=== PATIENT | male | born 1960 | race Caucasian/White ===

== ENCOUNTER → 2024-06-04 | Outpatient (CLI) | payer BC, SELFPAY ==
--- NOTE | 2024-06-04 06:36 | MRI_ITS ---
STUDY: MRI LUMBAR SPINE WITHOUT CONTRAST REASON FOR EXAM: Male, 64 years old. pain TECHNIQUE: Standardized fat and water weighted pulse sequences were obtained in the sagittal and axial planes. COMPARISON: X-ray 05/17/2024 FINDINGS: T12-L1: Normal endplates. Normal disc height, hydration and morphology. Normal bilateral facet joints. Normal central canal and bilateral lateral recesses. Normal bilateral intervertebral neural foramina. Normal lumbar lordosis. There is no substantial scoliosis. Normal conus medullaris that terminates at the L1. L1-2: Normal endplates. Normal disc height, hydration and morphology. Normal bilateral facet joints. Normal central canal and bilateral lateral recesses. Normal bilateral intervertebral neural foramina. L2-3: Moderate broad disc protrusion produces moderate spinal stenosis with moderate bilateral lateral recess stenosis with abutment of the L3 nerve roots bilaterally and moderate bilateral neural foraminal stenosis. L3-4: Moderate broad disc protrusion produces moderate spinal stenosis with moderate bilateral lateral recess stenosis with abutment of the L4 nerve roots bilaterally and moderate bilateral neural foraminal stenosis. L4-5: Mild broad disc protrusion produces mild spinal stenosis and moderate bilateral neural foraminal stenosis. L5-S1: Mild broad disc protrusion produces mild spinal stenosis and moderate bilateral neural foraminal stenosis. Normal visualized sacral ala. Mild friction related edema in the posterior subcutaneous fat. MRI/Spine Lumbar (Routine) IMPRESSION: Multilevel degenerative changes, as described above. Electronically Signed: Gonzalo Stapleton MD at 13:40 EDT ,
== END | disposition home or self-care (01) ==
PROVIDERS: PCP Nurse Practitioner Family; Referring Provider Orthopaedic Surgery Orthopaedic Surgery of the Spine; Visit Provider Orthopaedic Surgery Orthopaedic Surgery of the Spine
DX: M54.16 Radiculopathy, lumbar region (principal)
CPT/HCPCS: 72148

== ENCOUNTER → 2024-11-01 | Outpatient (CLI) | payer BC, SELFPAY ==
--- NOTE | 2024-11-01 06:38 | MRI_ITS ---
HISTORY: cervical myelopathy. TECHNIQUE: Multiplanar and multisequence MR images of the cervical spine were obtained without contrast. 302 images. COMPARISON: XR 09/14/2024. FINDINGS: VERTEBRAE: Vertebral body heights are maintained. Mild degenerative endplate changes at C3-4, C5-6, and C6-7. 8 mm atypical hemangioma in the C7 spinous process incidentally noted. VERTEBRAL ALIGNMENT: Straightening of the cervical lordosis without significant anterior or posterior subluxation. SPINAL CORD: Cervical cord signal and morphology within normal limits. SOFT TISSUES: No prevertebral fluid collection. INTERVERTEBRAL DISCS: C2-3: No significant posterior disc protrusion, central canal stenosis, or foraminal narrowing. C3-4: Very mild disc bulge with uncovertebral and facet arthropathy resulting in minimal narrowing of the thecal sac and mild bilateral foraminal narrowing. C4-5: Mild disc bulge with uncovertebral and facet arthropathy resulting in mild central canal stenosis and bilateral foraminal narrowing. C5-6: Moderate posterior disc bulge osteophyte complex eccentric to left with uncovertebral and facet arthropathy resulting in probable left traversing nerve root impingement, abutment of the ventral cord, moderate central canal stenosis, moderate left, and mild right foraminal narrowing. C6-7: Moderate disc bulge with uncovertebral and facet arthropathy resulting in bilateral traversing nerve root abutment, mild ventral cord abutment, moderate central canal stenosis, and bilateral foraminal narrowing. C7-T1: No significant posterior disc protrusion, central canal stenosis, or foraminal narrowing. Small right perineural cyst. MRI/Spine Cervical (Routine) IMPRESSION: Multilevel degenerative disc disease resulting in moderate spinal canal stenosis, bilateral foraminal narrowing, cord abutment, and nerve root abutment at C5-6 and C6-7. Electronically Signed: Liyah Schmitz MD at 15:17 EST ,
== END | disposition home or self-care (01) ==
PROVIDERS: PCP Nurse Practitioner Family; Referring Provider Orthopaedic Surgery Orthopaedic Surgery of the Spine; Visit Provider Orthopaedic Surgery Orthopaedic Surgery of the Spine
DX: G95.9 Disease of spinal cord, unspecified (principal)
CPT/HCPCS: 72141

== ENCOUNTER 2024-12-19 14:49 | Observation (INO) | payer BC, SELFPAY ==
--- NOTE | 2024-12-07 06:35 | EKG12_ITS ---
Test Reason : PREOP Blood Pressure : */* mmHG Vent. Rate : 99 BPM Atrial Rate : 99 BPM P-R Int : 162 ms QRS Dur : 88 ms QT Int : 324 ms P-R-T Axes : 39 19 -38 degrees QTcB Int : 415 ms Normal sinus rhythm T wave abnormality, consider inferior ischemia Abnormal ECG Confirmed by TONY MOCTEZUMA, DAJUAN ([id number]), digital editor GUSTAVO MCKEON ([id number]) on 12/07/2024 12:51:32 PM Referred By: Slava Bateman Confirmed By: DAJUAN JIMENEZ MD
[2024-12-07 07:10] LABS: Absolute Lymphocyte Count 1.09 X10^3/uL (0.83-4.51); Absolute Neutrophil Count 7.8 X10^3/uL (2.0-7.7); Basophil# 0.08 X10^3/uL; Basophil% 0.8 % (0-1); Eosinophils% 0.9 % (0-5); Hematocrit 45.6 % (40-54); Hemoglobin 15.9 g/dL (13.0-16.5); Lymphocyte # 1.09 X10^3/ul (0.83-4.51); Lymphocyte % 10.3 % (19-41); Mean Corp Hgb Conc 34.9 g/dL (32-36); Mean Corpuscular Hgb 29.2 pg (27.0-32.0); Mean Corpuscular Volume 83.7 fL (80-94); Mean Platelet Vol. 9.2 fl (6.2-12.0); Monocyte% 13.3 % (0-10); NRBC Flagged by Analyzer 0 % (0-5); Neutrophil # 7.81 X10^3/uL (2.7-7.7); Neutrophil % 74.1 % (47-70); Platelet Count 167 K/mm3 (150-450); RBC Distribution Width CV 13.3 % (11.6-14.6); RBC Distribution Width SD 40.6 fl (35.1-43.9); Red Blood Count 5.45 M/mm3 (4.6-6.2); White Blood Count 10.5 K/mm3 (4.4-11.0)
[2024-12-07 07:46] LABS: Anion Gap 9 (5-15); BUN 13 mg/dL (7-18); BUN/Creat Ratio 11.3 RATIO (10-20); Chloride 105 mmol/L (98-107); Creatinine, Serum 1.15 mg/dL (0.70-1.30); EST Glomerular Filtration Rate 68 mL/min (>60); Est Glom Filt Rate - Afr Amer 83 mL/min (>60); Glucose 130 mg/dL (74-106); Potassium 3.6 mmol/L (3.5-5.1); Sodium Level 138 mmol/L (136-145)
[2024-12-08 05:07] LABS: Hepatitis A AB, Total Negative (Negative)
--- NOTE | 2024-12-10 11:18 | PAT.ANESEVAL ---
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 When Was Last Pacemaker Check QUESTION #4 FULL TEXT: You/Your Family Experience fever (hyperthermia) with Anesthesia Last Oral Intake Last Oral intake: Last Oral Intake NPO since Meds taken in AM with sips of water? Meds patient instructed to take am of surgery PONV PONV - complaint operator: PONV - complaint operator Female No 12/05/24 13:11 HX of Motion Sickness No 12/05/24 13:11 HX of N/V After Surgery No 12/05/24 13:11 Non-Smoker Yes 12/05/24 13:11 Duration of Surgery greater Yes 12/05/24 13:11 than 60 minutes Number of Risk Factors 2 12/05/24 13:11 PONV Score Moderate Risk 12/05/24 13:11 Height & Weight Height & Weight: Anesthesia: Height & Weight Height 5 ft 9 in 05/17/24 08:18 Respiratory Assessment Respiratory Assessment - complaint operator: Respiratory Tract Infection Hx - complaint operator Hx Respiratory Tract Infection No 12/05/24 13:11 STOP Sleep Apnea STOP Sleep Apnea - complaint operator: STOP Sleep Apnea - complaint operator Hx Hypertension Yes: CONTROLLED WITH MEDS 12/05/24 13:11 Hx Sleep Apnea Yes 12/05/24 13:11 CPAP No 12/05/24 13:11 BIPAP Yes 12/05/24 13:11 Do you snore loudly (louder than talking or can be heard Do you often feel tired/ fatigued/ sleepy during daytime? Has anyone observed you stop breathing during sleep? STOP Results Positive 12/05/24 13:11 QUESTION #5 FULL TEXT : Do you snore loudly (louder than talking or can be heard through closed doors)? Tobacco Use History Tobacco Use History - complaint operator: Tobacco Use History - complaint operator Tobacco Use Smoking Status Never smoker 12/05/24 13:11 Hx Tobacco Use No 12/05/24 13:11 Years Smoking Packs Smoked per Day Smoking Cessation Date was within the last 15 years Hx Smoking Cessation Date Hx Smoking Cessation Counseling Hematologic Medial History Hematologic Hx - complaint operator: Hematologic Medical Hx - rn clinical documentation Hx of Blood Transfusion No 12/05/24 13:11 Hx of Transfusion in last 3 No 12/05/24 13:11 Months Date of Last Transfusion (if within last 3 months) Ever experience any problems No 12/05/24 13:11 with transfusion(s)? Specify any problems Hx of Preganancy in last 3 N/A 12/05/24 13:11 Months Nurse Filling Out Transfusion DSCHRIBER 12/05/24 13:11 & Questions: Date: 12/05/24 12/05/24 13:11 Time: 13:13 12/05/24 13:11 Patient unable to answer at this time (ie. confused, unrespo /Reproduction History /Reproductive History - complaint operator: /Reproductive Hx- complaint operator Hx Now No 12/05/24 13:11 Gestational Age (in weeks): EDC: Hx Hx Para Hx Section SAB No 12/05/24 13:11 [facility] Medical History (Updated 12/05/24 @ 13:20 by Niru Alba) Wears glasses Depression Anxiety Alcohol use Arthritis Back pain Migraine headache Injury of head and neck History of diverticulitis BiPAP (biphasic positive airway pressure) dependence Shortness of breath on exertion Non-smoker History of pain when walking History of stress test High cholesterol Hypertension Home Medications ?Medication ?Instructions ?Recorded ?Last Taken ?Type cholecalciferol (vitamin D3) 50 50 mcg PO DAILY 05/17/24 Unknown History mcg (2,000 unit) capsule hydrochlorothiazide 12.5 mg tablet 12.5 mg PO QDAY 05/17/24 Unknown History drrnnuaqxaif-fji-bcnjz acid-vit 1 tab PO DAILY 05/17/24 Unknown History K-lycop 400 mcg-20 mcg-370 mcg tablet (Men's 50 Plus Multivitamin) rosuvastatin 10 mg tablet 10 mg PO QHS 05/17/24 Unknown History amlodipine 10 mg tablet 10 mg PO QDAY 09/14/24 Unknown History acetaminophen 325 mg tablet 1,000 mg PO DAILY 12/05/24 Unknown History (Tylenol) Allergy/AdvReac Type Severity Reaction Status Date / Time Penicillins Allergy PT UNSURE Verified 12/05/24 13:06 OF REACTION Sulfa (Sulfonamide Allergy Rash Verified 12/05/24 13:06 Antibiotics) (sulfa drugs) Family History Other Arthritis Hypertension Myocardial infarction Surgical History (Updated 12/05/24 @ 13:20 by Niru Alba) History of cystoscopy Hx of colonoscopy History of colostomy reversal Hx of colectomy Hx of elbow surgery History of Achilles tendon repair History of testicular surgery Hx of inguinal hernia surgery History of cholecystectomy Social History Smoking Status: Never smoker alcohol intake: current alcohol intake frequency: a few times a week what type of physical activity do you participate in: walking and other details: lifts weights frequency: 3-4 times per week Audit: Pertinent Findings Pertinent Findings EKG Perinent findings: 12/07/2024 normal sinus rhythm 99 bpm T wave abnormality, nonspecific ST-T no old EKGs to compare Recommendation Anesthesia Recommendation Anesthesia recommendation: OPTIMIZED for anesthesia
--- NOTE | 2024-12-10 11:20 | PAT.ANESEVAL ---
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 When Was Last Pacemaker Check QUESTION #4 FULL TEXT: You/Your Family Experience fever (hyperthermia) with Anesthesia Last Oral Intake Last Oral intake: Last Oral Intake NPO since Meds taken in AM with sips of water? Meds patient instructed to take am of surgery PONV PONV - commercial real estate agent: PONV - commercial real estate agent Female No 12/05/24 13:11 HX of Motion Sickness No 12/05/24 13:11 HX of N/V After Surgery No 12/05/24 13:11 Non-Smoker Yes 12/05/24 13:11 Duration of Surgery greater Yes 12/05/24 13:11 than 60 minutes Number of Risk Factors 2 12/05/24 13:11 PONV Score Moderate Risk 12/05/24 13:11 Height & Weight Height & Weight: Anesthesia: Height & Weight Height 5 ft 9 in 05/17/24 08:18 Respiratory Assessment Respiratory Assessment - commercial real estate agent: Respiratory Tract Infection Hx - commercial real estate agent Hx Respiratory Tract Infection No 12/05/24 13:11 STOP Sleep Apnea STOP Sleep Apnea - commercial real estate agent: STOP Sleep Apnea - commercial real estate agent Hx Hypertension Yes: CONTROLLED WITH MEDS 12/05/24 13:11 Hx Sleep Apnea Yes 12/05/24 13:11 CPAP No 12/05/24 13:11 BIPAP Yes 12/05/24 13:11 Do you snore loudly (louder than talking or can be heard Do you often feel tired/ fatigued/ sleepy during daytime? Has anyone observed you stop breathing during sleep? STOP Results Positive 12/05/24 13:11 QUESTION #5 FULL TEXT : Do you snore loudly (louder than talking or can be heard through closed doors)? 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 Specify any problems Hx of Preganancy in last 3 N/A 12/05/24 13:11 Months Nurse Filling Out Transfusion DSCHRIBER 12/05/24 13:11 & Questions: Date: 12/05/24 12/05/24 13:11 Time: 13:13 12/05/24 13:11 Patient unable to answer at this time (ie. confused, unrespo /Reproduction History /Reproductive History - commercial real estate agent: /Reproductive Hx- commercial real estate agent Hx Now No 12/05/24 13:11 Gestational Age (in weeks): EDC: Hx Hx Para Hx Section SAB No 12/05/24 13:11 PENDING SALE TO [facility] Medical History (Updated 12/05/24 @ 13:20 by Niru Alba) Wears glasses Depression Anxiety Alcohol use Arthritis Back pain Migraine headache Injury of head and neck History of diverticulitis BiPAP (biphasic positive airway pressure) dependence Shortness of breath on exertion Non-smoker History of pain when walking History of stress test High cholesterol Hypertension Home Medications ?Medication ?Instructions ?Recorded ?Last Taken ?Type cholecalciferol (vitamin D3) 50 50 mcg PO DAILY 05/17/24 Unknown History mcg (2,000 unit) capsule hydrochlorothiazide 12.5 mg tablet 12.5 mg PO QDAY 05/17/24 Unknown History ooyqunuuqnnc-lzs-eqaea acid-vit 1 tab PO DAILY 05/17/24 Unknown History K-lycop 400 mcg-20 mcg-370 mcg tablet (Men's 50 Plus Multivitamin) rosuvastatin 10 mg tablet 10 mg PO QHS 05/17/24 Unknown History amlodipine 10 mg tablet 10 mg PO QDAY 09/14/24 Unknown History acetaminophen 325 mg tablet 1,000 mg PO DAILY 12/05/24 Unknown History (Tylenol) Allergy/AdvReac Type Severity Reaction Status Date / Time Penicillins Allergy PT UNSURE Verified 12/05/24 13:06 OF REACTION Sulfa (Sulfonamide Allergy Rash Verified 12/05/24 13:06 Antibiotics) (sulfa drugs) Family History Other Arthritis Hypertension Myocardial infarction Surgical History (Updated 12/05/24 @ 13:20 by Niru Alba) History of cystoscopy Hx of colonoscopy History of colostomy reversal Hx of colectomy Hx of elbow surgery History of Achilles tendon repair History of testicular surgery Hx of inguinal hernia surgery History of cholecystectomy Social History Smoking Status: Never smoker alcohol intake: current alcohol intake frequency: a few times a week what type of physical activity do you participate in: walking and other details: lifts weights frequency: 3-4 times per week Audit: Pertinent Findings HISTORY of Pertinent Findings History of Pertinent Findings: EKG Pertinent Findings EKG Perinent findings 12/07/2024 normal sinus 12/10/24 11:20 rhythm 99 bpm T wave abnormality, nonspecific ST- T no old EKGs to compare Recommendation Anesthesia Recommendation Anesthesia recommendation: OPTIMIZED for anesthesia
[2024-12-11 14:47] LABS: HIV - WCH Non-Reactive (Nonreactive); Hepatitis B Surface Antibody Non-Reactive; Hepatitis C Antibody Non-Reactive (Nonreactive)
[2024-12-19] VITALS (19 sets, daily range): BP systolic 139–167; BP diastolic 78–103; PULSE 81–105; RESP 14–24; TEMP 36.1–37.4; O2SAT 93–100; BMI 37.8
[2024-12-19] MEDS: Acetaminophen 500 MG Tablet 1000 MG PO ×2 (11:00→20:04)
[2024-12-19] MEDS: 0.9% Normal Saline (1000mL) 1,000 ML 15 ML IV (11:00)
[2024-12-19] MEDS: Magnesium 1 GM over 15 mins IV (11:01)
--- NOTE | 2024-12-19 11:05 | PCM.HP.BLA ---
History and Physical Date of Admission: 12/19/24 MR#: [id number] Acct: [id number] Name: DEVIN LUNDBERG Rep #: [id number] : 1960 Provider: Dr. Slava Bateman MD Age/Sex: 64/M Location: [facility] [place] Status: Signed Intake Vital Signs 05/17/2408:18 Height 5 ft 9 in Intake Visit Reasons: cervical spine Accompanied by: Self Is patient in pain?: Yes Allergies Penicillins Allergy (Verified 12/18/24 10:09) PT UNSURE OF REACTIONSulfa (Sulfonamide Antibiotics) (sulfa drugs) Allergy (Verified 12/18/24 10:09) Rash Medications ?Medication ?Instructions ?Recorded ?Confirmed ?Type cholecalciferol (vitamin D3) 50 50 mcg PO DAILY 05/17/24 12/18/24 History mcg (2,000 unit) capsule hydrochlorothiazide 12.5 mg tablet 12.5 mg PO QDAY 05/17/24 12/18/24 History gdohchmnbdti-yqr-fgoyy acid-vit 1 tab PO DAILY 05/17/24 12/18/24 History K-lycop 400 mcg-20 mcg-370 mcg tablet (Men's 50 Plus Multivitamin) rosuvastatin 10 mg tablet 10 mg PO QHS 05/17/24 12/18/24 History amlodipine 10 mg tablet 10 mg PO QDAY 09/14/24 12/18/24 History acetaminophen 325 mg tablet 1,000 mg PO DAILY 12/05/24 12/18/24 History (Tylenol) PFSH Medical History (Updated 12/05/24 @ 13:20 by Niru Alba) Wears glasses Depression Anxiety Alcohol use Arthritis Back pain Migraine headache Injury of head and neck History of diverticulitis BiPAP (biphasic positive airway pressure) dependence Shortness of breath on exertion Non-smoker History of pain when walking History of stress test High cholesterol Hypertension Surgical History (Updated 12/05/24 @ 13:20 by Niru Alba) History of cystoscopy Hx of colonoscopy History of colostomy reversal Hx of colectomy Hx of elbow surgery History of Achilles tendon repair History of testicular surgery Hx of inguinal hernia surgery History of cholecystectomy Family History Other Arthritis Hypertension Myocardial infarction Social History (Reviewed 11/15/24 @ 15:38 by Maryuri Alvarado Smoking Status: Never smoker alcohol intake: current alcohol intake frequency: a few times a week what type of physical activity do you participate in: walking and other details: lifts weights frequency: 3-4 times per week HPI cervical spine Details: This documentation accurately reflects the service provided and the decisions made by me, Dr. Slava Bateman MD 12/18/24 1005. Part of today?s visit was documented by [ ], acting as scribe. DEVIN LUNDBERG is a 64 year old M here today for his preop appointment for his cervical spine surgery scheduled on 12/19/24. Patient notes that he continues to have cervical spine pain. He denies any radiating pain but has numbness into his hands. He denies any changes since his last visit. Patient notes that he takes tylenol for pain. He is getting over a lingering cold but feels like he is better. 11/16/23: DEVIN LUNDBERG is a 64 year old M here today for MRI review of cervical spine. Patient denies any changes. Patient take 1000mg of Tylenol once a day for pain. Drops stuff a lot with his right hand. Denies any falls or tripping episodes. Complains of balance issues. Non diabetic, no major heart/lung problems, does not take blood thinners. Does have sleep apnea and uses a CPAP machine. 09/14/24: DEVIN LUNDBERG is a 64 year old M here today for neck pain. He states that his arms fall asleep at night and drops things frequently. He has also been having headaches every couple of days. He states that base of his neck always feels tight and sometimes sore. He also feel like he has grinding in the neck as well. He has had neck pain for many years. He does see the chiropractor frequently as well. He occasionally get numbness, tingling in pain bilaterally in the arms. He denies PT and injection for the neck. He had an injection in his lower back with Dr. Ewing which was beneficial. Says that he has noticed his hand writing legibility has decreased. Also mentions that he feels unsteady on his feet. Ortho Exam General General: Yes no acute distress Neurologic: Yes alert and Yes oriented x3 Psychologic: Yes reasonable and appropriate Spine SPINE TESTING CERVICAL THORACIC LUMBAR Musculoskeletal Strength 0=absent - 5=normal Details: Neurological exam of the upper extremities shows 5x5 power. Normal sensations across all dermatomes. Sameer's negative. Right knee reflexes brisk. No midline or paraspinal tenderness. Romberg's positive. Single leg stand shows mild balance issue. Coding Level of Care Code Off vis,est,level 4 Diagnoses Cervical myelopathy G95.9 Time Spent (min) 35 Assessment and Plan Assessment and Plan (1) Cervical myelopathy: Status: Acute Plan reviewed cervical xrays done previously and MRI done recently. Imaging shows straightening of normal cervical lordosis and disc height loss at C5-6 and C6-7. Cervical spine MRI shows C5-6 and C6-7 disc degeneration with cord indentation worse over the left hemicord without cord signal changes. Reviewed imaging in detail with patient. Patient today with cervical myelopathy with progressive dexterity and balance issues from cord compression at C5 and C6-7 levels. Explained to him the natural history of cervical myelopathy which typically that of progression. In order to halt the progression of myelopathy, recommend C5-7 anterior cervical decompression fusion. Went over the risks and benefits of the surgery with the patient. Risks include but are not limited to infection, bleeding, hematoma formation, need for further surgery, dysphagia, dysphonia, recurrent laryngeal nerve injury, DVT, pulm embolism, pneumonia, atelectasis, pseudoarthrosis, adjacent segment degeneration, cardiopulmonary event. Patient understands and agrees to proceed with surgery. Goal of surgery would be to halt progression of myelopathy and hopefully improve his current function. Restrictions after surgery were discussed in detail.
[2024-12-19 11:17] LABS: Bedside Glucose 180 mg/dL (74-106)
--- NOTE | 2024-12-19 11:27 | PCM.PRE.AN2 ---
ASA Classification* ASA Classification ASA Classification: 3 Assessment & Plan Anesthesia* Anesthesia Assessment Anesthesia Assessment: Discussed sedation and/or anesthesia options, risks, benefits, and alternatives with patient/parents/legal guardian/POA. Questions invited. The patient/parents/legal guardian/POA seems to understand and agrees to proceed with anesthesia plan. Reviewed the physical assessment, medical history, allergy history and patient home medications list prior to surgery/procedure/anesthetic and documented any changes. Performed airway and anesthesia risk assessments. Anesthesia Type Anesthesia Type: General (discussed his higher risk for bronchospasm due to lingering cough, nonproductive, patient okay with proceeding with higher risk of bronchospasm) History Source History Obtained from:: Patient and Chart Anesthesia Focused Assessment* Temperature: 97.4 F Pulse Rate: 100 Blood Pressure: 155/88 Respiratory Rate: 20 Pulse Ox: 95 Oxygen Delivery Method: Room Air Airway Assessment Mouth opens: >3 cm Mallampati Score: II Teeth Condition: Intact Neck Range of motion (ROM): Full ROM Focused Labs Anesthesia Preop lab: CBC WBC 10.5 K/mm3 (4.4-11.0) 12/07/24 06:54 12/07/24 RBC 5.45 M/mm3 (4.6-6.2) 12/07/24 06:54 12/07/24 Hgb 15.9 g/dL (13.0-16.5) 12/07/24 06:54 12/07/24 Hct 45.6 % (40-54) 12/07/24 06:54 12/07/24 Plt Count 167 K/mm3 (150-450) 12/07/24 06:54 12/07/24 CHEMISTRY Potassium 3.6 mmol/L (3.5-5.1) 12/07/24 06:54 12/07/24 Sodium 138 mmol/L (136-145) 12/07/24 06:54 12/07/24 Magnesium 2.0 mg/dL (1.6-2.6) 12/07/24 06:54 12/07/24 BUN 13 mg/dL (7-18) 12/07/24 06:54 12/07/24 Creatinine 1.15 mg/dL (0.70-1.30) 12/07/24 06:54 12/07/24 Glucose 130 mg/dL (74-106) H 12/07/24 06:54 12/07/24 POC Glucose 180 mg/dL (74-106) H 12/19/24 10:54 12/19/24 COAG Pre-Assessment Diagnosis/Proposed Procedure Planned Operative Procedure(s): ANTERIOR CERVICAL DISC FUSION C5-6 6-7 Anesthesia History 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 When Was Last Pacemaker Check QUESTION #4 FULL TEXT: You/Your Family Experience fever (hyperthermia) with Anesthesia Last Oral Intake Last Oral intake: Last Oral Intake NPO since 20:00 12/19/24 10:51 Meds taken in AM with sips of Yes 12/19/24 10:51 water? Meds patient instructed to ensure, amlodipine 12/19/24 10:51 take am of surgery PONV PONV - ocean rescue lieutenant: PONV - ocean rescue lieutenant Female No 12/05/24 13:11 HX of Motion Sickness No 12/05/24 13:11 HX of N/V After Surgery No 12/05/24 13:11 Non-Smoker Yes 12/05/24 13:11 Duration of Surgery greater Yes 12/05/24 13:11 than 60 minutes Number of Risk Factors 2 12/05/24 13:11 PONV Score Moderate Risk 12/05/24 13:11 Height & Weight Height & Weight: Anesthesia: Height & Weight Height 5 ft 9 in 12/19/24 10:51 Weight: 116 kg 12/19/24 10:51 Body Mass Index (BMI) 37.8 12/19/24 10:51 Respiratory Assessment Respiratory Assessment - ocean rescue lieutenant: Respiratory Tract Infection Hx - ocean rescue lieutenant Hx Respiratory Tract Infection No 12/05/24 13:11 Any additional information?: Yes Hx Respiratory Tract Infection: Yes (1.5 weeks ago, got z-pack getting better but still has dry lingering cough) STOP Sleep Apnea STOP Sleep Apnea - ocean rescue lieutenant: STOP Sleep Apnea - ocean rescue lieutenant Hx Hypertension Yes: CONTROLLED WITH MEDS 12/05/24 13:11 Hx Sleep Apnea Yes 12/05/24 13:11 CPAP No 12/05/24 13:11 BIPAP Yes 12/05/24 13:11 Do you snore loudly (louder than talking or can be heard Do you often feel tired/ fatigued/ sleepy during daytime? Has anyone observed you stop breathing during sleep? STOP Results Positive 12/05/24 13:11 QUESTION #5 FULL TEXT : Do you snore loudly (louder than talking or can be heard through closed doors)? Tobacco Use History Tobacco Use History - ocean rescue lieutenant: Tobacco Use History - ocean rescue lieutenant Tobacco Use Smoking Status Never smoker 12/05/24 13:11 Hx Tobacco Use No 12/05/24 13:11 Years Smoking Packs Smoked per Day Smoking Cessation Date was within the last 15 years Hx Smoking Cessation Date Hx Smoking Cessation Counseling Hematologic Medial History Hematologic Hx - ocean rescue lieutenant: Hematologic Medical Hx - laser beam cutter Hx of Blood Transfusion No 12/05/24 13:11 Hx of Transfusion in last 3 No 12/05/24 13:11 Months Date of Last Transfusion (if within last 3 months) Ever experience any problems No 12/05/24 13:11 with transfusion(s)? Specify any problems Hx of Preganancy in last 3 N/A 12/05/24 13:11 Months Nurse Filling Out Transfusion DSCHRIBER 12/05/24 13:11 & Questions: Date: 12/05/24 12/05/24 13:11 Time: 13:13 12/05/24 13:11 Patient unable to answer at this time (ie. confused, unrespo /Reproduction History /Reproductive History - ocean rescue lieutenant: /Reproductive Hx- ocean rescue lieutenant Hx Now No 12/05/24 13:11 Gestational Age (in weeks): EDC: Hx Hx Para Hx Section SAB No 12/05/24 13:11 Active Medications Active Medications: Current Medications Generic Name Dose Route Start Last Admin Trade Name Freq PRN Reason Stop Dose Admin Acetaminophen 1,000 mg 12/19/24 13:35 12/19/24 11:00 Acetaminophen 500 Mg Tablet PO 12/19/24 13:36 1,000 mg X1 ONE Administration Dexamethasone Sodium Phosphate 8 mg 12/19/24 13:35 Dexamethasone 10 Mg/Ml Vial IV 12/19/24 13:36 X1 ONE Dexamethasone Sodium Phosphate 4 mg 12/19/24 13:35 Dexamethasone 4 Mg/Ml Vial IV 12/19/24 13:36 X1 ONE Clindamycin Phosphate 900 mg in 50 mls @ 75 mls/hr 12/19/24 13:35 Cleocin IV 12/19/24 14:14 PREOP ONE Tranexamic Acid 1,000 mg/ 110 mls @ 440 mls/hr 12/19/24 13:35 Sodium Chloride IV 12/19/24 13:49 X1 ONE Tranexamic Acid 1,000 mg/ 110 mls @ 440 mls/hr 12/19/24 13:35 Sodium Chloride IV 12/19/24 13:49 X1 ONE Magnesium Sulfate 1 gm/ 102 mls @ 408 mls/hr 12/19/24 13:35 12/19/24 11:01 Dextrose IV 12/19/24 13:49 408 mls/hr X1 ONE Administration Sodium Chloride 1,000 mls @ 15 mls/hr 12/19/24 10:40 12/19/24 11:00 IV 12/24/24 23:59 15 mls/hr .Q48H TERE Administration Protocol Insulin Human Lispro 1 - 6 unit 12/19/24 13:35 Insulin Lispro 100 Unit/Ml Insuln.Pen SC Q4H PRN PRN BG>/= 180, SEE PROTOCOL Protocol PFSH Medical History Wears glasses Depression Anxiety Alcohol use Arthritis Back pain Migraine headache Injury of head and neck History of diverticulitis BiPAP (biphasic positive airway pressure) dependence Shortness of breath on exertion Non-smoker History of pain when walking History of stress test High cholesterol Hypertension Home Medications ?Medication ?Instructions ?Recorded ?Last Taken ?Type cholecalciferol (vitamin D3) 50 50 mcg PO DAILY 05/17/24 12/18/24 History mcg (2,000 unit) capsule hydrochlorothiazide 12.5 mg tablet 12.5 mg PO QDAY 05/17/24 12/18/24 History asgvbwbxysiw-wtx-xnwwx acid-vit 1 tab PO DAILY 05/17/24 12/18/24 History K-lycop 400 mcg-20 mcg-370 mcg tablet (Men's 50 Plus Multivitamin) rosuvastatin 10 mg tablet 10 mg PO QHS 05/17/24 12/18/24 History amlodipine 10 mg tablet 10 mg PO QDAY 09/14/24 12/19/24 09:45 History acetaminophen 325 mg tablet 1,000 mg PO DAILY 12/05/24 12/18/24 History (Tylenol) Allergy/AdvReac Type Severity Reaction Status Date / Time Penicillins Allergy PT UNSURE Verified 12/19/24 10:58 OF REACTION Sulfa (Sulfonamide Allergy Rash Verified 12/19/24 10:58 Antibiotics) (sulfa drugs) Family History Other Arthritis Hypertension Myocardial infarction Surgical History (Updated 12/05/24 @ 13:20 by Niru Alba) History of cystoscopy Hx of colonoscopy History of colostomy reversal Hx of colectomy Hx of elbow surgery History of Achilles tendon repair History of testicular surgery Hx of inguinal hernia surgery History of cholecystectomy Social History Smoking Status: Never smoker alcohol intake: current alcohol intake frequency: a few times a week what type of physical activity do you participate in: walking and other details: lifts weights frequency: 3-4 times per week Review of Systems (Anesthesia) ROS Narrative System reviewed and no additional complaints, except as documented. Physical Exam Const alert and oriented x3 HEENT dentition normal Resp normal respiratory effort, normal air movement and clear to auscultation bilaterally Cardio regular rate Neuro oriented x3 and moves all extremities
[2024-12-19] MEDS: TRANEXAMIC ACID 1,000 MG in 0.9% Normal Saline (100mL Bag) 100 ML 440 MG IV ×2 (11:45→14:02)
[2024-12-19] MEDS: dexAMETHasone 10 MG/ML Vial 8 MG IV (11:50)
[2024-12-19] MEDS: Clindamycin 900 MG/50 ML BAG 75 MG IV ×2 (11:50→20:02)
--- NOTE | 2024-12-19 11:51 | RAD_ITS ---
PROCEDURE: Fluoroscopy use. REASON FOR EXAM: C5-6 and C6-7 fusion. TECHNIQUE: 9 intraoperative fluoroscopic images were obtained during cervical spine fusion. COMPARISON: Cervical spine MRI 11/01/2024 FINDINGS: 9 intraoperative fluoroscopic images were obtained during cervical spine fusion. 18.35 seconds of fluoroscopic time was utilized. On the provided images, a fixation plate and multiple screws project over the anterior margin of the C5-C7 vertebral bodies. RAD/Cerv Spine 2 or 3 Views IMPRESSION: Documentation of fluoroscopy use during cervical spine fusion. Please see the operative note for details. Reading Location: [facility]
--- NOTE | 2024-12-19 14:33 | OP.PCM_ITS ---
Procedures Musculoskeletal 20xxx-29xxx: Other Procedure See Report Operative Report (Standard) Operative Information Date of Procedure: 12/19/24 Pre-Operative Diagnosis: C5-7 disc degeneration with stenosis, myelopathy Post-Operative Diagnosis: Same Surgery/Procedure Performed: C5-7 ACDF router operator radial: Yes Fourdrinier Tender: vishnu Tasks completed by cutting table operator first: Closing, Hemostasis: Electrocautery and Retracting Type of Anesthesia: General RN Documented Start/Stop Times: Operation Date: 12/19/24 13:35 Case Time Into Pre-Op 12/19/24 10:34 Out of Pre-Op 12/19/24 11:40 Anesthesia Start 12/19/24 11:43 Into Room 12/19/24 11:43 Procedure Start 12/19/24 12:19 Procedure End 12/19/24 14:28 Procedure Start Time: 12:19 Procedure Stop Time: 14:28 Select all DRAINS/GRAFTS/IMPLANTS that apply: Graft Graft details: Allograft cortical cancellous strut structural graft and Implanted device Implanted device details: Medtronic [place] Elite plate instrumentation Estimated Blood Loss: 40 cc Specimen collected: No Description of surgery: Preoperative diagnosis: C5-7 disc degeneration with stenosis, myelopathy Postoperative diagnosis: Same Name of procedure: C5-7 anterior cervical discectomy and fusion with plate instrumentation - Anterior cervical fusion C5-6, CPT code 21047 - Anterior plate instrumentation C5-7, CPT code 13021/59 - Anterior cervical fusion C6-7, CPT code 96928/51 -C5-6 structural allograft bone with DBX, CPT code 99547 -C6-7 structural allograft bone with DBX, CPT code 49928 Attending surgeon: Slava Bateman M.D. Anesthesia: Gen. endotracheal Estimated blood loss: 40 mL Complications: None Instrumentation used: Medtronic [place] Elite plate, LASR corticocancellous block Indications: The patient is a pleasant 64-year-old gentleman who presented with neck pain, progressive difficulty with dexterity and balance. MRI showed C5-7 disc degeneration with stenosis and cord compression. In order to halt the progression of myelopathy, the patient requested surgical treatment. All risks and benefits of the procedure were explained to the patient. The risks include but are not limited to infection, bleeding, injury to nerves and vessels, vertebral artery injury, spinal cord injury, paralysis, vocal cord paralysis, injury to esophagus, pseudoarthrosis, need for further procedures, adjacent segment degeneration. Procedure: The patient was identified in the preoperative suite using unique patient identifiers. Skin was marked consent was taken and all questions were answered. The patient was then brought back to the operative room and a timeout was performed. General endotracheal anesthesia was given. Intraoperative neuro monitoring leads were applied. The patient was carefully positioned supine on a regular OR table. A lateral view with a C-arm was done to identify the level and to define the incision. The anterior neck was then prepped and draped in the usual fashion. A final timeout was then performed. A transverse skin incision was taken to the left of midline. Subcutaneous tissue was then divided with Bovie. Platysma was identified and cut along the incision with scissors. The fascial interval between the sternocleidomastoid and the larynx was developed. Omohyoid was identified and retracted and then later divided to obtain adequate retraction of midline structures. The esophagus with the larynx was retracted medially to reach the prevertebral fascia. Marker x-ray was performed with bent spinal needle and disc space and levels were confirmed. Longus coli muscle was elevated on both sides at and above and below C5-7 discs. Self-retaining retractors were then placed. A long handle knife was then used to perform annulotomy at C5-6. Disc fragments were removed with the pituitary. [place] pins were placed in C5 and C6 for disc distraction. Curettes and bur was utilized to remove cartilage from the endplates. Discectomy was performed laterally up to the uncovertebral joints. Posterior osteophytes were thinned down with the bur and adequate decompression in the central and foraminal areas were performed and PLL was thinned out. Once the disc space was prepared, trials of various sizes were utilized. Thorough irrigation was given. 6 mm LASR cortical cancellous allograft bone large footprint was then fashioned in such a way that concavities were burred out inferiorly and superiorly and half cc of DBX (demineralized bone matrix) was squeezed into the cancellous portion. The graft was then inserted into the C5-6 disc space. The retractors were then repositioned and the procedure was repeated for C6-7 disc with complete discectomy. Graft size was 6 mm at with large footprint at C6-7. The grafts were found to be in good apposition with good pullout strength. A 42 mm Medtronic [place] Elite plate was then fixed to C5-7 with 17 mm screws. A lateral x-ray was then taken to check the length of the screws. Both AP and lateral x-rays showed good positioning of plate and screws. The locking mechanism over the screw heads was then turned. Thorough irrigation was again given. Hemostasis was achieved. A [place] drain was then inserted. Closure was done with 3-0 Vicryl for the platysma and subcutaneous tissue layers and 4-0 Monocryl for the skin. Closure was done around the drain. Steri-Strips were applied and dressing was done with 4 x 4 gauze and Tegaderm. A cervical collar was then applied. The patient was then woken up from anesthesia extubated and taken to PACU in stable condition. From here, the patient will be transitioned to the floor. Intraoperative neuro monitoring was performed throughout this procedure. Motor evoked potentials were run periodically. All potentials remained at baseline throughout the procedure. I was present for the entire surgery and performed the surgery myself. Surgical Findings: See operative note Complications Complications: No
--- NOTE | 2024-12-19 14:53 | PCM.POST.ANE ---
Anesthesia: Postop Eval I Current Vital Signs Temperature: 99.4 F Pulse Rate: 92 Blood Pressure: 159/103 Respiratory Rate: 24 Pulse Ox: 100 Oxygen Delivery Method: Simple Mask Oxygen Flow Rate (L/min): 6 Assessment Airway patent: Yes Spontaneous unlabored respirations: Yes Mental status: Awake and Calm nausea: No Vomiting: No Anesthesia Complication: No Fluid Hydration Crystalloid volume administer (ml): 1,700 Total IV fluid infused: 1,700 Progress Note Anesthesia document: Postop Eval 1 completed: Yes
--- NOTE | 2024-12-19 15:51 | POSTOPAN2_ITS ---
Anesthesia Postop Eval I Sum Postop Eval Completion status Anesthesia document: Postop Eval 1 completed: Yes Anesthesia Postop Eval I Summary Anesthesia Postop Eval I Summary: Anesthesia Postop Eval I: Assessment Summary Airway patent Yes 12/19/24 14:54 FILE [email or web address] Spontaneous unlabored Yes 12/19/24 14:54 FILE [email or web address] respirations Mental status Awake,Calm 12/19/24 14:54 FILE [email or web address] nausea No 12/19/24 14:54 FILE [email or web address] Vomiting No 12/19/24 14:54 FILE [email or web address] Anesthesia Postop Eval I: Fluid Summary Crystalloid volume administer 1,700 12/19/24 14:54 FILE [email or web address] (ml) Colloids volume administered ( ml) Blood Product volume administered (ml) Total IV fluid infused 1,700 12/19/24 14:54 FILE [email or web address] Anesthesia Postop Eval I: Summary Notes Anesthesia Complication No 12/19/24 14:54 FILE [email or web address] Anesthesia Complication Comment: Post-operative progress note Anesthesia: Postop Eval II Evaluation Mental status: Awake and Calm Pain Level: 0 nausea: No Vomiting: No Complications Anesthesia Complication: No
--- NOTE | 2024-12-19 15:51 | PCM.POSTANE2 ---
Anesthesia Postop Eval I Sum Postop Eval Completion status Anesthesia document: Postop Eval 1 completed: Yes Anesthesia Postop Eval I Summary Anesthesia Postop Eval I Summary: Anesthesia Postop Eval I: Assessment Summary Airway patent Yes 12/19/24 14:54 INTERACTIVE MEDIA SPECIALIST.[email or web address] Spontaneous unlabored Yes 12/19/24 14:54 INTERACTIVE MEDIA SPECIALIST.LEOPOLDO respirations Mental status Awake,Calm 12/19/24 14:54 INTERACTIVE MEDIA SPECIALIST.[email or web address] nausea No 12/19/24 14:54 INTERACTIVE MEDIA SPECIALIST.SKOBY Vomiting No 12/19/24 14:54 INTERACTIVE MEDIA SPECIALIST.[email or web address] Anesthesia Postop Eval I: Fluid Summary Crystalloid volume administer 1,700 12/19/24 14:54 INTERACTIVE MEDIA SPECIALIST.[email or web address] (ml) Colloids volume administered ( ml) Blood Product volume administered (ml) Total IV fluid infused 1,700 12/19/24 14:54 INTERACTIVE MEDIA SPECIALIST.[email or web address] Anesthesia Postop Eval I: Summary Notes Anesthesia Complication No 12/19/24 14:54 INTERACTIVE MEDIA SPECIALIST.LEOPOLDO Anesthesia Complication Comment: Post-operative progress note Anesthesia: Postop Eval II Evaluation Mental status: Awake and Calm Pain Level: 0 nausea: No Vomiting: No Complications Anesthesia Complication: No
[2024-12-19] MEDS: oxyCODONE 5 MG Tablet PO (18:45)
--- NOTE | 2024-12-19 18:46 | PCM.PN.HOSP ---
Reason for Visit Reason for Visit: Diagnoses Encounter for other preprocedural examination (12/19/24) Subjective Subjective Consult requested to Dr. Bateman for postoperative medical management. Patient feels that he is doing fairly well after surgery today. Has eaten and is doing well thus far. Pain is very tolerable at the moment. Objective Data Objective Data Vital Signs: Vital Signs Temp Pulse Resp BP Pulse Ox O2 Del Method O2 Flow Rate 36.7 C 101 H 16 167/94 H 95 Room Air 4 12/19/24 18:18 12/19/24 18:18 12/19/24 18:18 12/19/24 18:18 12/19/24 18:18 12/19/24 18:18 12/19/24 16:30 FiO2 40 12/19/24 15:15 Oxygen Flow Rate (L/min) 4 Oxygen Delivery Method Room Air Weight: 116 kg Body Mass Index (BMI) 37.8 Intake & Output: Intake and Output for Last 24 Hours 12/17/24 12/18/24 12/19/24 23:59 23:59 23:59 Intake Total 2172 / 2172 Output Total 300 / 300 Balance 1872 / 1872 Lab / Micro Data 12/07/24 06:54 12/07/24 06:54 Labs: Laboratory Results - last 24 hr 12/19/24 10:54: POC Glucose 180 H Micro: Microbiology 12/07/24 06:54 Swab (Method) Nasal Screen MRSA/MSSA - Final Physical Exam Const Constitutional Narrative: Up in bed. Nontoxic afebrile. Neck collar in place. Resp normal respiratory effort, no retractions, no use of accessory muscles and clear to auscultation bilaterally Cardio regular rate, regular rhythm, S1 normal heart sound and S2 normal heart sound GI normal to inspection, nondistended, normoactive bowel sounds, soft to palpation, non-tender and non-distended Extremity normal to inspection and full ROM Neuro moves all extremities Sensorium / Orientation: awake and alert Assessment & Plan Assessment/Plan (1) Spinal stenosis in cervical region: PLAN: Plan Hypertension: Patient did require labetalol in the operating room. Continue with amlodipine, hydrochlorothiazide. Status post C5-7 ACDF: Management per primary service. VTE prophylaxis: Per the primary service. Patient very medically stable and do not dissipate any active acute medical issues but the hospital service can be available in case anything were to come out. Please reach out if acute medical issues do arise. Charges/Coding Visit Charges Office Visits / Consults: [id number] OV L2 New 15min
[2024-12-19] MEDS: Ensure Surgery 237 ML LIQUID PO (18:47)
[2024-12-19] MEDS: Methocarbamol 500 MG Tablet 1000 MG PO ×2 (20:02→22:22)
[2024-12-19] MEDS: Senna/Docusate Sodium 1 Tablet 2 TABLET PO (20:04)
[2024-12-19] MEDS: Atorvastatin Calcium 20 MG Tablet PO (20:04)
--- NOTE | 2024-12-19 21:53 | CPS ---
Patient has home pap but refused to have PREMIX OPERATOR CONCENTRATE set it up, he stated he felt stuffy and would rather not wear it tonight.
[2024-12-20] VITALS (9 sets, daily range): BP systolic 142–167; BP diastolic 73–98; PULSE 85–95; RESP 16–18; TEMP 36.2–36.5; O2SAT 94–95; BMI 37.8
[2024-12-20] MEDS: oxyCODONE 5 MG Tablet PO ×3 (00:37→14:34)
[2024-12-20] MEDS: Clindamycin 900 MG/50 ML BAG 75 MG IV (03:27)
[2024-12-20] MEDS: amLODIPine 10 MG Tablet PO (05:19)
[2024-12-20] MEDS: hydroCHLOROthiazide 12.5mg 12.5 MG PO (05:19)
[2024-12-20] MEDS: Acetaminophen 500 MG Tablet 1000 MG PO ×2 (05:20→13:31)
--- NOTE | 2024-12-20 05:23 | NURSING ---
bp medication given at this time d/t increased bp. rn aware
--- NOTE | 2024-12-20 05:55 | RAD_ITS ---
PROCEDURE: CERV SPINE 2 OR 3 VIEWS REASON FOR EXAM: Status post anterior cervical disc fusion. TECHNIQUE: 2 views of the cervical spine. COMPARISON: Cervical spine x-ray dated 09/14/2024. FINDINGS: There is mild reversal of normal cervical lordosis. Since prior examination, patient has undergone C5-C7 anterior cervical disc fusion. Intervertebral disc spacers are present at C5-6 and C6-7. Stable degenerative changes within cervical spine. C-spine braces there appears to be in place. RAD/Cerv Spine 2 or 3 Views IMPRESSION: Serous post C5-C7 ACDF. Reading Location: [id number]
--- NOTE | 2024-12-20 06:53 | NURSING ---
recheck of pt bp completed at this time and remains high, rn made aware, will pass along information in report for dayshift
[2024-12-20 07:53] LABS: Hematocrit 42.9 % (40-54); Hemoglobin 14.8 g/dL (13.0-16.5); Mean Corp Hgb Conc 34.5 g/dL (32-36); Mean Corpuscular Hgb 29.1 pg (27.0-32.0); Mean Corpuscular Volume 84.3 fL (80-94); Mean Platelet Vol. 8.7 fl (6.2-12.0); Platelet Count 285 K/mm3 (150-450); RBC Distribution Width CV 13.3 % (11.6-14.6); RBC Distribution Width SD 41.1 fl (35.1-43.9); Red Blood Count 5.09 M/mm3 (4.6-6.2); White Blood Count 19.1 K/mm3 (4.4-11.0)
[2024-12-20] MEDS: Ensure Surgery 237 ML LIQUID PO ×2 (08:15→11:36)
[2024-12-20 08:34] LABS: Anion Gap 16 (5-15); BUN 13 mg/dL (4-19); BUN/Creat Ratio 14.8 RATIO (10-20); Calcium 9.3 mg/dL (7.6-11.0); Carbon Dioxide 19.4 mmol/L (22.0-29.0); Chloride 102 mmol/L (96-108); Creatinine, Serum 0.9 mg/dL (0.8-1.3); EST Glomerular Filtration Rate 96 (>60); Estimated Creatinine Clearance 106.91 ml/min; Glucose 158 mg/dL (70-99); Potassium 3.8 mmol/L (3.3-5.1); Sodium Level 137 mmol/L (133-145)
--- NOTE | 2024-12-20 09:25 | CASEMGMT ---
SHANE HARRY Assessment: Face to Face with pt for initial transition planning/care coordination assessment. SHANE HARRY introduced self and role at [facility], pt voices understanding and consents to assessment. Pt is A&O x4 and answers all questions appropriately at this time. Pt sitting up in chair in no distress and just finished working with PT. Care providers, pharmacy, and demographics verified/updated. Admitting Dx: anterior cervical fusion Strata Score: 1 PCP:Cecilia Specialists:gideon Bateman [facility]acy: [facility] [place] Insurance: [place] Prescription Benefit: yes LNOK: Linette King, dtr; Jasvir Burks, brother Living Arrangements: Pt lives alone in a two story home with 3 steps to enter. Pt reports he was I in ADL/IADLs and denies concerns at home. Transportation: Pt drives self and denies concerns with transportation. Pt dtr will transport him until he can drive again. DME:Denies HHC/SNF: Denies hx of Pt states no concerns with going home at time of dc. Pt ambulated halls without device, felt safe. Pt states no further concerns/needs. CM to follow. Advised pt to ask CM if any further questions/concerns/needs arise, voices understanding. Pt Goal: Home Plan: Home Audrey LYNN CM
[2024-12-20] MEDS: Senna/Docusate Sodium 1 Tablet 2 TABLET PO (10:20)
[2024-12-20] MEDS: Methocarbamol 500 MG Tablet 1000 MG PO ×2 (10:20→13:32)
[2024-12-20] MEDS: Meloxicam 15 MG Tablet PO (10:20)
--- NOTE | 2024-12-20 13:00 | PCM.PN.ORT ---
Subjective Subjective Postop day 1 status post C5-7 ACDF. Pain well-controlled. Walked with PT OT. Preoperative symptoms resolved. Objective Data Objective Data Vital Signs: Vital Signs Temp Pulse Resp BP Pulse Ox O2 Del Method O2 Flow Rate 97.5 F L 88 18 145/73 H 94 Room Air 2 12/20/24 10:00 12/20/24 11:55 12/20/24 11:55 12/20/24 10:00 12/20/24 11:55 12/20/24 11:55 12/20/24 07:00 FiO2 40 12/19/24 15:15 Oxygen Flow Rate (L/min) 2 Oxygen Delivery Method Room Air Weight: 255 lb 11.779 oz Body Mass Index (BMI) 37.8 Intake & Output: Intake and Output for Last 24 Hours 12/18/24 12/19/24 12/20/24 23:59 23:59 23:59 Intake Total 2582 / 2582 1257.75 / 1257.75 Output Total 300 / 300 725 / 725 Balance 2282 / 2282 532.75 / 532.75 Lab / Micro Data 12/20/24 07:47 12/20/24 07:42 Labs: Laboratory Results - last 24 hr 12/20/24 07:42: Sodium 137, Potassium 3.8, Chloride Direct 102, Carbon Dioxide 19.4 L, Anion Gap 16 H, BUN 13, Creatinine 0.9, Estim Creat Clear Calc 106.91, Est GFR (MDRD) Non-Af 96, BUN/Creatinine Ratio 14.8, Glucose 158 H, Calcium 9.3 12/20/24 07:47: WBC 19.1 H, RBC 5.09, Hgb 14.8, Hct 42.9, MCV 84.3, MCH 29.1, MCHC 34.5, RDW Std Deviation 41.1, RDW Coeff of Delia 13.3, Plt Count 285, MPV 8.7 Micro: Microbiology 12/07/24 06:54 Swab (Method) Nasal Screen MRSA/MSSA - Final Radiography Diagnostic Testing: Radiology Impression Cervical Spine X-Ray 12/19/24 11:51 IMPRESSION: Documentation of fluoroscopy use during cervical spine fusion. Please see the operative note for details. Reading Location: [facility] Cervical Spine X-Ray 12/20/24 05:55 IMPRESSION: Serous post C5-C7 ACDF. Reading Location: [id number] Physical Exam Narrative Lucius drain removed and dressing changed. Neurologic motion of upper extremity shows 5 x 5 power in all muscle groups Assessment & Plan Assessment/Plan (1) S/P cervical spinal fusion: PLAN: Plan Postop day 1 status post C5-7 ACDF. Doing well. Hypotension overnight resolved. Discussed with hospitalist. No dysphagia. PT OT cleared. X-rays reviewed. Okay to discharge home and follow-up in 2 weeks.
== END 2024-12-20 15:13 | disposition home or self-care (01) ==
LOC: SDC 17:48 → MS3 17:48
PROVIDERS: Admitting Provider Orthopaedic Surgery Orthopaedic Surgery of the Spine; PCP Nurse Practitioner Family; Referring Provider Orthopaedic Surgery Orthopaedic Surgery of the Spine; Visit Provider Internal Medicine
PROC: (CPT 22551; principal; 2024-12-19 13:05)
DX: M48.02 Spinal stenosis, cervical region (principal); G99.2 Myelopathy in diseases classified elsewhere; I10 Essential (primary) hypertension; G47.30 Sleep apnea, unspecified; E78.00 Pure hypercholesterolemia, unspecified; M50.022 Cervical disc disorder at C5-C6 level with myelopathy; Z79.899 Other long term (current) drug therapy
CPT/HCPCS: 22551; 22552; 22845; 20931; 00670; 36415; 72040; 76000; 80048; 82962; 83735; 85025; 85027; 86703; 86706; 86708; 86803; 86850; 86900; 86901; 87081; 93005; 94002; 94668; 96365; 96366; 97162; 99221; C1713; G0378; J2405; J3475

== ENCOUNTER 2025-03-22 08:00 | Outpatient (RCR) | payer BC, SELFPAY ==
--- NOTE | 2025-01-23 14:08 | HP.PTEVAL_ITS ---
Patient's Visit Information Visit Information Visit Information: DEVIN LUNDBERG is a 64 year old M referred to Physical Therapy by MIRIAN Jason with a diagnosis of S/P CERVICAL SPINAL FUSION 12/19/24. Date of Evaluation: 01/11/25 Physical Therapist: Spring Goins PT, Cert MDT Visit Plan Frequency: 2x /Week Duration: 6-8 WKS Plan: NO LIFTING > 8 LBS UNTIL CHANGED BY DR. HINTON. POSTURE CORRECTION/STRENGTHENING, INSTRUCTION IN APPROPRIATE BODY MECHANICS/WORK STATION ERGONOMICS AND ACTIVITY MODIFICATIONS. START WITH SUBMAX CERVICAL ISOMETRICS AND PROGRESS NECK STRENGTHENING SLOWLY TOLERATED. GENTLE CERVICAL ROM PROGRESSING TOLERATED. LOPEZ UE ROM, STRETCHING AND STRENGTHENING INCLUDING SCAPULAR STRENGTHENING. TRANSFER TRAINING AND LE STRENGTHENING NEEDED AND HEP INSTRUCTION. 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 Present symptoms: CONSTANT LOWER NECK/UPPER BACK LOCALIZED PAIN. INTERMITTENT LOPEZ SHLD PAIN. INTERMITTENT PAIN BETWEEN SHLD BLADES. Present since: 40 YEARS Getting Better, Getting Worse or Staying the Same: IMPROVING Pain Scale: Worst - 4/10 Least - 1/10 Currently: /10 Commenced as a result of: LIFTING A BUS TUB AT WORK CLEANING TABLES - WENT DOWN Symptoms at onset: WENT DOWN Worse: BEING OUT OF THE NECK COLLAR - SUPPOSED TO WEAN OUT AND HAVEN'T BEEN IN IT FOR ABOUT 3 DAYS. , LIFTING MORE THAN I SHOULD - 15 TO 20 LBS - I'M ONLY SUPPOSED TO CARRY A JUG OF MILK. Better: TYLONOL, MALOXICAM Disturbed sleep: YES - ISPILATERAL SHLD PAIN Previous history/Previous treatment: LONG HISTORY OF CHIROPRACTIC MANIPULALATIONS. This episode: CERVICAL FUSION BY DR. HINTON 12/19/24 Dizziness: NO Tinnitus: NO Nausea: NO Shortness of Breath: NO Difficulty Swallowing: NO Gait: NO Accidents: NO Unexplained weight loss: NO Imaging: IMAGING AFTER SURGERY LOOKED GOOD PER PATIENT REPORT PMH/Recent major surgery: HTN AND HIGH CHOLESTEROL. H/O DIVERTICULITIS/COLON SX. L BICEPS REATTACHMENT AT ELBOW. Objective Objective: Sitting Posture/Standing Posture: PPT, FH, RSH'S IN SITTING. Active Correction of posture: BETTER - DECREASES NECK/SHLD PAIN. Other Observations: INDEP GAIT AND TRANSFERS. USES HANDS TO TRANSFER SIT TO STAND AND PLOPS IN CHAIR WITH UNCONTROLLED STAND TO SIT. NO USE OF AD'S OR LOB WALKING IN/OUT OF PT. FOLLOW COMMANDS WELL AND IS PLEASANT AND COOPERATIVE TO WORK WITH. Sensory deficit: LOPEZ UE LIGHT TOUGH SENSATION GROSSLY INTACT AND SYMMETRICAL. ROM deficit: R SHLD FLEX 151 DEG, ABD 156. L SHLD FLEX 160 DEG, ABD 161 DEG. LOPEZ ER 45 DEG. LOPEZ IR TO SMALL OF BACK. 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 Dural Signs: NEGATIVE LOPEZ UE DTR'S Cervical Mvmt Loss: Flex: MIN Pro: NIL Ext: ELIZABETH Ret: ELIZABETH RSB: MOD LSB: MOD R Rot: MOD L Rot: MOD STIFFNESS AND DISCOMFORT REPORTED WITH CERVICAL ROM TESTING BUT NW A RESULT. Postural strength: POOR Palpation: WELL HEALED INCISION. INCREASED MUSCLE TONE LOPEZ CERVICAL MUSCULATURE. Balance/Special Test Scores Oswestry Neck Score: 16 Goals Goal 1:: DECREASE C/O NECK/SHLD PAIN BY AT LEAST 75% TO EASE ADL AND WORK FUNCTION Goal Time Frame: 6-8 Weeks Goal 2:: IMPROVE PERSONAL CARE, LIFTING, READING, SLEEP, WORK, DRIVING AND RECREATIONAL FUNCTION WITH NECK OSWESTRY SCORE IMPROVEMENT OF AT LEAST 5 POINTS. Goal Time Frame: 6-8 Weeks Goal 3:: INSTRUCT IN PROPHYLAXIS Goal Time Frame: 6-8 Weeks Rehabilitation Potential Physical Therapy Diagnosis: CERVICAL, POSTURAL AND SHLD STIFFNESS AND WEAKNESS. Rehabilitation Potential: Good Anticipated Interventions Patient/Client Instruction: Educate patient on: Condition, Plan of Care and Risk Factors For the Purpose of:: To improve self management Therapeutic Exercise to Include: Strength training, Body mechanics, Postural training, Flexibilty training, Neuromotor development and Scapular Strength/Stabilization For the Purpose of:: To decrease pain, To increase ROM, To improve muscle performance and motor function, To increase tolerance to activity/condition/po sition, To improve ability of physical actions for home/community/work/leisure, To decrease soft tissue restriction, To increase flexibility/ROM and To improve self management Manual Therapy Techniques to Include: Trigger point massage and Soft tissue mobilization For the Purpose of:: To decrease soft tissue restriction Cryotherapy (ice pack, ice massage): Yes Thermo therapy (hot pack): Yes For the Purpose of:: To decrease pain, To decrease swelling/inflammation and To improve nutrient delivery to tissue Text: Thank you for the opportunity to evaluate your patient. For Medicare and Medicare HMO plans, please review the plan of care and approve it. It will need to be FAXED BACK to us at [phone] for Medicare purposes. For Medicare only, by signing this I certify the plan of care. Please let me know if there are questions or concerns regarding this plan of care. Physician Signature: Date:
--- NOTE | 2025-03-22 09:21 | HP.PTDCSUM ---
Discharge Summary D/C summary: It has been my pleasure to treat DEVIN LUNDBERG referred by MIRIAN Jason, with the diagnosis of S/P CERVICAL SPINAL FUSION 12/19/24 for a total of 14 visit(s). Discharge Date: 03/22/25 Please see the following information for a summary of their discharge status. Subjective Subjective: PATIENT REPORTS HAVING FOLLOW UP WITH DR. HINTON AND HE RELEASED HIM WITHOUT RESTRICTION. PLAYED SOFTBALL TUESDAY AND GOT UP FEELING GREAT TUESDAY. TUESDAY EVENING DID GET SOME R NECK PAIN FOR NO APPARENT REASON TURNING HIS HEAD TO THE L IN THE CAR. INTERMITTENT R NECK PAIN 0-5/10 SINCE. DENIES LOPEZ UE AND LE NUMBNESS AND TINGLING FOR ABOUT 2 WKS NOW EXCEPT A LITTLE BIT OF SCIATICA THAT RESOLVED WITH LUMBAR LIANG LAST WEEK. STATES HE HAS BEEN BUSY GETTING HIS MOM'S HOUSE READY FOR SALE. OVER-ALL FEELS GREAT AND BETTER THAN HE HAS IN 30 YEARS. HAPPY WITH FEELING ABLE TO SWING BAT FREELY AND ABILITY TO THROW SOFTBALL. Pain L SHLD BLADE: Pain Intensity (Out of 10): 0 NECK: Pain Intensity (Out of 10): 2 Overall Improvement % Improvement: 92 Objective Objective/Function: PATIENT WAS SEEN TODAY FOR RE-ASSESSMENT OF PROGRESS TOWARD THE SET PT GOALS AND THE NEED FOR FURTHER PHYSICAL THERAPY VS READINESS FOR DISCHARGE. THIS PATIENT HAS DONE GREAT WITH REHAB. ALL PT GOALS HAVE BEEN MET, HE IS INDEP WITH GYM AND HOME EX PROGRAMS AND APPROPRIATE FOR AND AGREEABLE TO D/C. UPON EXAM TODAY: ROM deficit: LOPEZ SHLD ELEVATION TO 160 DEG. SENSATION: LOPEZ UE LIGHT TOUCH SENSATION GROSSLY INTACT AND SYMMETRICAL. Motor deficit: LOPEZ UE'S 5/5. 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 Goals Goal 1:: DECREASE C/O NECK/SHLD PAIN BY AT LEAST 75% TO EASE ADL AND WORK FUNCTION Goal Progress: Goal Met Goal 2:: IMPROVE PERSONAL CARE, LIFTING, READING, SLEEP, WORK, DRIVING AND RECREATIONAL FUNCTION WITH NECK OSWESTRY SCORE IMPROVEMENT OF AT LEAST 5 POINTS. Goal Progress: Goal Met Goal 3:: INSTRUCT IN PROPHYLAXIS Goal Progress: Goal Met Plan Plan: D/C. D/C Information d/c sentence: If there are questions or concerns regarding this patient's physical therapy, please feel free to call me at [phone]. Thank you for the referral of this patient. Sincerely, Spring Goins, PT, Cert MDT Balance/Gait/Functional tests Balance/Special Test Scores Oswestry Neck Score: 3 Improvement % Improvement: 92
== END 2025-03-22 19:00 | disposition home or self-care (01) ==
LOC: PT 08:00
PROVIDERS: PCP Nurse Practitioner Family; Referring Provider Student in an Organized Health Care Education/Training Program; Visit Provider Student in an Organized Health Care Education/Training Program
DX: Z98.1 Arthrodesis status (principal); G95.9 Disease of spinal cord, unspecified
CPT/HCPCS: 97110; 97162; 97530